=== PATIENT | female | born 1970 | race Caucasian/White ===

== ENCOUNTER → 2021-06-15 10:05 | Outpatient (BNVA) | payer OTHER, SELFPAY | PROVIDERS: PCP Internal Medicine; Visit Provider Physician Assistant Medical | DX: S69.92XA Unspecified injury of left wrist, hand and finger(s), initial encounter (principal); X58.XXXA Exposure to other specified factors, initial encounter | CPT/HCPCS: 73110; 73130; 99213 ==

== ENCOUNTER → 2021-06-21 14:32 | Outpatient (BNVA) | payer OTHER, SELFPAY | PROVIDERS: PCP Internal Medicine; Visit Provider Physician Assistant Medical | DX: G56.02 Carpal tunnel syndrome, left upper limb (principal) | CPT/HCPCS: 99213 ==

== ENCOUNTER → 2021-06-25 12:55 | Outpatient (BNVA) | payer OTHER, SELFPAY | PROVIDERS: PCP Internal Medicine; Visit Provider Physician Assistant | DX: M25.532 Pain in left wrist (principal) | CPT/HCPCS: 99214 ==

== ENCOUNTER → 2021-07-07 08:20 | Outpatient (BNVA) | payer OTHER, SELFPAY | PROVIDERS: PCP Internal Medicine; Visit Provider Orthopaedic Surgery | DX: M79.632 Pain in left forearm (principal); M25.532 Pain in left wrist; M79.642 Pain in left hand; R20.0 Anesthesia of skin; R20.2 Paresthesia of skin | CPT/HCPCS: 99202 ==

== ENCOUNTER 2021-08-03 07:30 | Outpatient (RCR) | payer OTHER, SELFPAY ==
--- NOTE | 2021-06-29 11:36 | MHC.OT.OEV ---
[address] [phone] F: [phone] Occupational Therapy Evaluation Diagnosis: L WRIST PAIN; CTS SYMPTOMS Date of Onset: 06/10/21 Attending Provider: Morena Carpenter Prescribed Treatment: RAY SEO Follow Up Appointment: 07/07/21 History of Current Condition: REPORTS ON/OFF SYMPTOMS X1 MONTH OF WEAKNESS, NUMBNESS AND TINGLING. SYMPTOMS BECAME MOST PRONOUNCED ON 06/10/21 WHEN SHE WAS UNABLE TO HOLD A BOOK IN HER LEFT HAND AND DROPPED IT. 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 WORK AT [employer] 3 HOURS - AND 8 HOURS MONDAY. 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 NO TYPING. HAVING TROUBLE WITH READING BOOKS ON LARGE TABLET. SEVERE DIFFICULTIES WITH COOKING, CLEANING AND HOLDING ITEMS. UNABLE TO LIFT LAUNDRY BASKET OR GROCERIES. Sleep: WAKES OFTEN AT NIGHT DUE TO THROBBING. WEARING SPLINT TO SLEEP. RECENTLY PRESCRIBED SLEEP MEDICATION WITH SOME HELP. Driving: MINIMALLY USING LEFT HAND, SUPPORTING ON STEERING WHEEL. MOSTLY USING RIGHT HAND. Vision: WEARS GLASSES. Pain Assessment Pain Score: 7-10 Pain Scale Used: Numeric (0 - 10) Pain Location and Description: 7/10 AT REST 10/10 WITH BUMPING, USE PAIN LOCATED AT ULNAR ASPECT OF WRIST, DORSAL WRIST, THUMB AND RADIAL WRIST CONSTANT THROBBING Aggravating Factors: HAVING L HAND DEPENDENT, PINCHING AND GRASPING Alleviating Factors: USING ICE, ELEVATION, WEARING BRACE, PAIN MEDICATION Skin and Soft Tissue Assessment Skin and Soft Tissue: Swelling Comments: MILD L DORSAL AND DIGIT EDEMA Nerve assessment Ulnar Nerve: Median Nerve: Radial Nerve: Comments: UNABLE TO TOLERATE MMT FOR NERVE TESTING DUE TO PAIN/GUARDING; WILL CONTINUE TO ASSESS WITH F/U SESSIONS Sensory Assessment Temperature: Light Touch: Left Impaired Proprioception: Vibration: Comments: REPORTS SEVERE NUMBNESS THROUGH ALL DIGITS D1-D5, GREATEST IN D1; CONTINUE TO ASSESS WITH SEMMES ANNELISE AT F/U SESSIONS Dexterity Assessment Dexterity: Left Impaired Comments: DIFFICULTIES WITH BUTTONS/ ZIPPERS AND TWO HANDED TASKS WITH L HAND Special Tests Comments: (+) TINELS AT WRIST (+) FOVEA UNABLE TO COMPLETE JAMES DUE TO INCREASED PAIN AND DISCOMFORT CONTINUE TO ASSESS ADDITIONAL TESTS AT F/U SESSIONS DUE TO PAIN/GUARDING/ DECREASED TOLERANCE AROM(PROM) Strength Shoulder Flexion: Extension: Abduction: Internal Rotation: External Rotation: Comments: HX OF L SHOULDER PAIN SINCE SUMMER 2020, L FLEXION GROSSLY 110 DEGREES Flexion: Extension: Abduction: Internal Rotation: External Rotation: Comments: Wrist Flexion: L 35, R 75 Extension: L 65, R 75 Ulnar Deviation: L 25, R 55 Radial Deviation: L 5, R 20 Comments: PAIN WITH L RADIAL DEVIATION Flexion: Extension: Ulnar Deviation: Radial Deviation: Comments: Thumb Thumb CMC Flexion: Thumb MCP Flexion: Thumb IP Flexion: Radial Abduction: Palmar Abduction: [place] (K[place]andji 0-10): L 6/10, R 10/10 Comments: Digits Index MCP: PIP: DIP: Long MCP: PIP: DIP: Ring MCP: PIP: DIP: Small MCP: PIP: DIP: Comments: Gross Grasp: R 67 Lateral Pinch: R 15 Two-Point Pinch: R 12 Three-Jaw Nikko: R 18 Comments: TESTING DEFERRED ON LEFT DUE TO PAIN Patient Education Primary Language: Portuguese Convalescent Sitter Required: No Current Knowledge: Understands information with skills for self-management Teaching Method: Handouts Verbal Education Needs Identified on Evaluation: ADL's How did patient/family demonstrate learning? Patient demonstrates Patient verbalizes Barriers to Learning: None Readiness for Learning: Accepting Who was educated? Patient Comments: Plan of Care Assessment: SAL REPORTS ABOUT A ONE MONTH HISTORY OF GRADUAL INCREASE IN NON-DOMIANT L WRIST PAIN. 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 SHE WAS SEEN IN THE WORK CONNECTION AND PLACED IN A PREFAB WRIST SPLINT AND ON LIGHT DUTY AT WORK. SHE WAS ADVISED TO AVOID TYPING, GRASPING AND PINCHING TASKS. A 75% LIMITATION IS REPORTED PER THE QUICK DASH ASSESSMENT, WHERE SHE IS UNABLE TO OPEN A TIGHT JAR OR CARRY ITEMS IN HER LEFT HAND. ADDITIONALLY, SHE REPORTS GENERAL NUMBNESS AND TINGLING THROUGH HER LEFT HAND IN ALL DIGITS. ONGOING SKILLED OT IS TO ADDRESS THE AREAS MENTIONED ABOVE AND IMPROVE QOL. STG Duration: 3 WEEKS Short Term Goals: IND HEP IND USE OF HEAT/ICE ACHIEVE KAPANDJI 9/10 FOR THUMB OPPOSITION IND JT PROTECTION AND ACTIVITY MODIFICATION TASKS FOR IADLs IND ADL CLOSURE BOARD FOR COORDINATION TASKS IN L HAND IND EDEMA MANAGEMENT STRATEGIES INCREASE L WRIST FLEX TO 55 DEGREES LTG Duration: 6 WEEKS Hogshead Hand Goals: QUICK DASH <60% REPORT <3/10 PAIN AT REST AND WITH AROM TOLERATE LIFTING >10 POUNDS WITH <4/10 PAIN FOR IADLs L GRASP >40 POUNDS REPORT MILD NUMBNESS/ TINGLING SYMPTOMS AT NIGHT AND DURING DAY Frequency and Duration: The patient will be seen 2X/WEEK FOR 6 WEEKS Treatment Plan: Therapeutic Exercise Therapeutic Activity Home Exercise Program Splinting Neuro Re-ed Patient Education Desensitization/Sensory Re-ed Edema Control ADL Training Ultrasound NMES Iontophoresis Paraffin Fluidotherapy MHP Cold Packs Joint Mobilization Soft Tissue Mobilization Kinesiotaping Electronically Signed By: IFEOMA REY OTR/L Reviewed/agree with student documentation: N/A Therapist: Please sign and return to therapist, Thank you for your referral.
== END 2021-08-03 08:40 | disposition home or self-care (01) ==
LOC: HO.OT 07:30
PROVIDERS: Visit Provider Physician Assistant
DX: M25.532 Pain in left wrist (principal); G56.02 Carpal tunnel syndrome, left upper limb
CPT/HCPCS: 97035; 97110; 97166; 97530

== ENCOUNTER 2021-08-12 10:17 | Outpatient (REF) | payer OTHER, SELFPAY ==
--- NOTE | 2021-08-12 10:20 | EMG_ITS ---
Bilateral median and ulnar motor and sensory studies were performed. Bilateral radial sensory study was performed and paraspinal muscles were tested. 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 MD FROYLAN Castro/FRANCISCA / [phone]
== END 2021-08-12 10:18 | disposition home or self-care (01) ==
LOC: HO.NEURO 10:17
PROVIDERS: Visit Provider Orthopaedic Surgery
DX: R20.0 Anesthesia of skin (principal); R20.2 Paresthesia of skin
CPT/HCPCS: 95886; 95911

== ENCOUNTER → 2021-09-14 12:24 | Outpatient (BNVA) | payer OTHER, SELFPAY | PROVIDERS: PCP Internal Medicine; Visit Provider Orthopaedic Surgery | DX: Z13.89 Encounter for screening for other disorder (principal) ==

== ENCOUNTER 2021-10-07 09:17 | Day surgery (SDC) | payer OTHER, SELFPAY ==
--- NOTE | 2021-10-07 08:46 | W.PM.OPN ---
Operative Note Operative Note Date of Service: 10/07/21 Narrative: Preop diagnosis: 1. left Carpal tunnel syndrome Postop diagnosis: same Procedure: 1. left Carpal tunnel release Surgeon: Jade Franklin MD Anesthesia: local block using 1% lidocaine with epinephrine Findings: Thickened transverse carpal ligament. EBL: Less than 5 mL Specimens: None Complications: None Disposition: Brought to recovery room in stable condition Plan: Follow-up for 10-14 days for wound check and suture removal Indications: The patient is 51 years old, with left carpal tunnel syndrome that has been unresponsive to nonoperative management. The risks and benefits of operative treatment including but not limited to risk of damage to blood vessels, nerves, tendons, infection, persistent pain, persistent symptoms, or possible need for additional surgery were discussed with the patient and the patient wishes to proceed with surgery. Procedure: Once consent was obtained a local block was performed using a combination of 1% lidocaine with epinephrine. The patient was then brought back to the operating suite and placed on the operative table in supine position. A tourniquet was applied to the proximal aspect of the left upper extremity and the limb was prepped and draped in a standard surgical fashion. Once assured that we had a good block, a 1.5 cm longitudinal incision was made centered over the carpal tunnel. The incision was made through the skin to the subcutaneous tissues using a #15 blade. Dissection was made down to the level of the transverse carpal ligament with care being taken to protect the palmar cutaneous nerve. Once the transverse carpal ligament was clearly visualized, a longitudinal incision was made in the transverse carpal ligament 1st using a #15 blade, then using tenotomy scissors under direct visualization. Care was taken to look for and protect the motor branch of the median nerve when seen in this area. Once satisfied with our carpal tunnel release the wound was copiously irrigated with normal saline and hemostasis was obtained with a brief period of local pressure. The skin edges were reapproximated with some 5.0 nylon suture material and a sterile dressing was applied. The patient appears to have tolerated the procedure well and with no complications. All digits were well vascularized at the conclusion of the case.
[2021-10-07 09:35] VITALS: BMI 42.7
[2021-10-07 09:47] VITALS: BP 117/74; PULSE 64; RESP 16; TEMP 36.4; O2SAT 95
[2021-10-07 11:19] VITALS: BP 133/83; PULSE 63; TEMP 36.7
--- NOTE | 2021-10-07 11:37 | MHC.SHP ---
Pre-Procedural Eval Section A Date of Service: 10/07/21 The patient is an INPATIENT: No Changes since office visit: No Cold of Flu in the past 2 weeks, No New Medical Problems, No Changes in Medication and No Patient answered all questions The History & Physical has been completed within 30 days and I have reviewed it.: Yes Section B Chief Complaint: carpal tunnel Allergies: Allergies Allergy/AdvReac Type Severity Reaction Status Date / Time Penicillins Allergy Intermediate Rash Verified 07/07/21 08:35 Plan I have reviewed the history and physical and performed a pertinent physical examination on my patient. No changes have occurred unless specified.
== END 2021-10-07 11:37 | disposition home or self-care (01) ==
PROVIDERS: Visit Provider Orthopaedic Surgery
PROC: (CPT 64721; principal; 2021-10-07 11:30)
DX: G56.02 Carpal tunnel syndrome, left upper limb (principal); R20.0 Anesthesia of skin; Z88.0 Allergy status to penicillin
CPT/HCPCS: 64721; J0171

== ENCOUNTER → 2021-10-20 11:28 | Outpatient (BNVA) | payer OTHER, SELFPAY | PROVIDERS: Visit Provider Orthopaedic Surgery | DX: G56.01 Carpal tunnel syndrome, right upper limb (principal) ==

== ENCOUNTER 2024-02-22 09:09 | Outpatient (REF) | payer OTHER, SELFPAY ==
[2024-02-22 09:45] LABS: MANUAL DIFF FLAG NO
[2024-02-22 09:56] LABS: Basophils Absolute Auto 0.1 X10*3/uL (0.0-0.2); Basophils Percent Auto 0.8 % (0-2); Eosinophils Absolute Auto 0.2 X10*3/uL (0.0-0.4); Hematocrit 43.8 % (37.0-47.0); Hemoglobin 14.1 g/dl (12.0-16.0); Imm Gran Abs Auto 0.02 X10*3/uL (0.00-0.03); Imm Gran Pct Auto 0.3 % (0.0-0.4); Lymphocytes Absolute Auto 2.5 X10*3/uL (1.2-4.9); Lymphocytes Percent Auto 31.2 % (20-40); Mean Corpuscular HGB Conc 32.2 g/dl (31.0-35.0); Mean Corpuscular Hemoglobin 26.7 pg (27.0-33.0); Mean Corpuscular Volume 82.8 fL (80.0-98.0); Mean Platelet Volume 9.4 fL (9.4-12.3); Monocytes Absolute Auto 0.4 X10*3/uL (0.1-1.2); Neutrophils Absolute Auto 4.8 x10*3/uL (2.0-8.3); Neutrophils Percent Auto 60.7 % (45-73); Platelet Count 255 X10*3/uL (160-400); Red Blood Count 5.29 X10*6/uL (4.20-5.50); Red Cell Distribution Width 14.2 % (11.0-16.0); White Blood Count 7.9 X10*3/uL (4.8-10.8)
[2024-02-22 10:03] LABS: Estimated Average Glucose 123 mg/dL; Hemoglobin A1c % 5.9 % (<6.0); Total Hemoglobin (HGBA1C) 3530.9651 umol/L
[2024-02-22 10:37] LABS: Alanine Aminotransferase 12 U/L (0-31); Albumin Level 4.1 g/dL (3.5-5.0); Alkaline Phosphatase 70 U/L (39-117); Anion Gap 13 (12-20); Aspartate Amino Transferase 12 U/L (5-31); Bilirubin Total 0.5 mg/dL (0.0-1.0); Blood Urea Nitrogen 13 mg/dL (9-16); Calcium 9.6 mg/dL (8.4-10.2); Carbon Dioxide 24 mmol/L (22-29); Chloride 108 mmol/L (96-108); Estimated Glomerular Filt Rate > 60; Glucose Random 116 mg/dL (60-115); Potassium 4.2 mmol/L (3.3-5.1); Sodium 141 mmol/L (135-145); Total Protein 7.5 g/dL (6.5-8.0)
[2024-02-22 10:53] LABS: Free T4 (Free Thyroxine) 0.81 ng/dL (0.71-1.85); Thyroid Stimulating Hormone 1.88 uIU/mL (0.32-4.0); Vitamin D 25-OH Total 15.4 ng/mL (>30)
[2024-02-22 11:03] LABS: Vitamin B12 358 pg/mL (200-900)
[2024-02-23 08:29] LABS: Triiodothyronine T3 Free 3.3 pg/mL (2.3-4.2)
[2024-02-23 13:27] LABS: RPR Rapid Plasma Reagin NON-REACTIVE (NON-REACTIVE)
== END 2024-02-22 09:10 | disposition home or self-care (01) ==
LOC: HO.LAB 09:09
PROVIDERS: PCP Physician Assistant Medical; Visit Provider Physician Assistant Medical
DX: Z00.00 Encounter for general adult medical examination without abnormal findings (principal); E11.9 Type 2 diabetes mellitus without complications; E55.9 Vitamin D deficiency, unspecified; E03.9 Hypothyroidism, unspecified; R41.840 Attention and concentration deficit
CPT/HCPCS: 36415; 80053; 82306; 82607; 83036; 84146; 84439; 84443; 84481; 85025; 86592